=== PATIENT | male | born 2000 | race Caucasian/White ===

== ENCOUNTER 2023-03-12 14:34 | Emergency (ER) | payer OTHER, SELFPAY ==
--- NOTE | 2023-03-12 14:42 | ED.GENADULT ---
HPI - General Adult General Chief complaint: Nausea/Vomiting/Diarrhea Stated complaint: Abdominal Pain Source: patient, RN notes reviewed and old records reviewed Mode of arrival: ambulatory Limitations: no limitations History of Present Illness HPI narrative: 22-year-old male presents to [facility] with complaints of nausea, vomiting, diarrhea this started Wednesday night after eating burger Derek. Patient states doc got food poisoning but symptoms are not improving. Patient states has 4-5 loose stools A day, and to episodes of vomiting per day. Patient has not taken anything for symptoms. MD complaint: N/V/D Onset (ago): day(s) (5) Related Data Allergies Allergy/AdvReac Type Severity Reaction Status Date / Time No Known Allergies Allergy Unverified 05/03/18 08:26 Review of Systems Constitutional: Constitutional: Reports no additional constitutional complaints, Reports body ache(s), Denies chills, Reports fatigue, Denies fever(s), Denies headache(s) and Reports poor appetite Eyes: Eyes: Reports no additional eye complaints and Denies blurry vision ENT: Reports system reviewed and no additional complaints, except as documented, Denies vertigo, Denies dizziness, Denies ear discharge, Denies otalgia, Denies facial pain, Denies headache(s), Denies nasal congestion, Denies nasal discharge, Denies sinus pain, Denies sinus pressure and Denies sore throat Cardiovascular: Cardiovascular: Reports no additional cardiovascular complaints, Denies chest pain, Denies chest pain at rest, Denies rapid heart rate and Denies dyspnea Respiratory: Respiratory: Reports no additional respiratory complaints, Denies chest congestion, Denies cough, Denies pain on inspiration, Denies pain with cough and Denies dyspnea Gastrointestinal: Gastrointestinal: Reports abdominal pain, Reports diarrhea, Reports nausea and Reports vomiting Integumentary/Breasts: Skin/Breast: Denies rash Neurologic: Reports system reviewed and no additional complaints, except as documented, Denies vertigo, Denies dizziness and Denies headache(s) Endocrine: Endocrine: Denies fatigue PMFSH Comments At the time of my signature, I reviewed and agree with the nursing past medical, surgical, social, and family history. There is no relevant family history pertinent to the patient complaint. Exam Const: General: cooperative, healthy appearing, no acute distress and well nourished Nutritional Appearance: well nourished Orientation/consciousness: patient oriented x3 Limitations: no limitations HENMT: Head: normal to inspection and normocephalic Ears: external ears normal, TM's normal bilaterally, mastoids normal and Abnormal EAC present Face/Nose/Sinus: normal facial exam Face and sinus: normal facial exam Mouth: Yes Normal oral and palatal mucosa present, Yes oropharynx normal and Yes moist mucous membranes Throat: tonsils normal, uvula midline and no uvular edema Eyes: General: appearance normal, both eyes and all related structures Sclera: sclerae normal Pupils: Equal, round and reactive pupils present Resp: Effort & Inspection: normal respiratory effort, able to speak in complete sentences, no audible wheezes, no cough, no respiratory distress and no retractions Cardio: Rate: regular rate GI: Inspection: normal to inspection, no edema and non-distended GI Palp: No abdominal tenderness, Yes Soft to palpation, No Firmness to palpation present (GI), No Tenderness to palpation present (GI), No Guarding due to palpation present (GI), No Rigid due to palpation, No No hepatosplenomegaly present and No Hepatosplenomegaly present Auscultation: normal bowel sounds Skin: General skin exam: normal color and no rashes or lesions noted Neuro: General: patient oriented x3 Cranial nerves: Yes Equal, round and reactive pupils present Psych: Appearance: grossly normal Mental Status: mental status grossly normal Speech and movement: Normal speech and movement present Affect: normal affec
[2023-03-12 14:48] VITALS: BP 123/51; PULSE 89; RESP 16; TEMP 37.3; O2SAT 100
== END 2023-03-12 15:04 | disposition home or self-care (01) ==
PROVIDERS: Emergency Provider Registered Nurse; PCP Internal Medicine
DX: K52.9 Noninfective gastroenteritis and colitis, unspecified (principal)
CPT/HCPCS: 99203; G0463

== ENCOUNTER 2023-08-12 09:14 | Emergency (ER) | payer OTHER, SELFPAY ==
[2023-08-12 09:20] VITALS: BP 146/81; PULSE 87; RESP 20; TEMP 37.2; O2SAT 99
--- NOTE | 2023-08-12 09:47 | ED.WOUNDLAC ---
HPI - Wound/Laceration General Chief Complaint: Wound/Laceration Stated Complaint: lac on right right finger Time Seen by Provider: 08/12/23 09:35 Source: patient, RN notes reviewed and old records reviewed Mode of arrival: ambulatory Limitations: no limitations History of Present Illness HPI narrative: 22 year old male who [facility] with complaints of laceration to dorsal aspect of his right ring finger,side aspect at PIP joint region. Patient reports that he was cleaning out his car and cut it on piece of metal that was sticking out under car seat. Patient reports that this happened at 2030 last evening and he cleansed wound and applied triple antibiotic ointment and band-aide. He states that his tetanus is up to date.Patient is right hand dominant. Onset (ago): day(s) (last night at 2030) Location: other (right ring finger) Patient tetanus UTD: Yes Treatments prior to arrival: other (cleansed and triple antibiotic ointment) Related Data Allergies Allergy/AdvReac Type Severity Reaction Status Date / Time No Known Allergies Allergy Unverified 05/03/18 08:26 Review of Systems Review of Systems: CONSTITUTIONAL: Denies fever, chills, or sweats. CARDIOVASCULAR: Denies chest pain, palpitations, or edema. RESPIRATORY: Denies cough or dyspnea. SKIN: Reports laceration to the right dorsal mid aspect of his right ring finger to side aspect near PIP joint MUSCULOSKELETAL: Denies musculoskeletal pain NEUROLOGIC: Denies numbness, or weakness. All systems reviewed & are unremarkable except as noted in HPI and below PMFSH Past Medical History Medical History Asthma when young Open right clavicular fracture with internal fixation Social History Social History Smoking status: Current every day smoker Tobacco type: e-cigarettes/vaping Alcohol intake: never Substance use type: does not use Living arrangements: with family Gender identity (if verbalized by the patient): Male Comments At time of signature, agree with nursing past medical, surgical, social and family history. There is no relevant family history pertinent to the presenting complaint Exam Narrative: GENERAL: Well-appearing, well-nourished, and in no acute distress. HEAD: Normocephalic, atraumatic. NECK: Supple.no lymphadenopathy CHEST: Clear to auscultation. No respiratory distress.SAO2 99% on room air HEART: Regular rate and rhythm. No murmur heard. Normal peripheral pulses. EXTREMITIES: Normal range of motion. No edema. SKIN: Warm, dry, no rash. Reports 1.5 linear laceration to the right ring finger on side of finger at pip joint area, see procedure note, nail bed blanches briskly, denies any tingling or numbness to right ring finger or hand. NEURO: No focal deficits. Alert and oriented x3. Course Course Level of Care: Express Care Visit Vital Signs Vital signs: Vital Signs Temperature 37.2 C 08/12/23 09:20 Pulse Rate 87 08/12/23 09:20 Respiratory Rate 08/12/23 09:20 Blood Pressure 146/81 H 08/12/23 09:20 Pulse Oximetry 99 08/12/23 09:20 Oxygen Delivery Room Air 08/12/23 09:20 Temperature 37.2 C 08/12/23 09:20 Pulse Rate 87 08/12/23 09:20 Respiratory Rate 08/12/23 09:20 Blood Pressure 146/81 H 08/12/23 09:20 Pulse Oximetry 99 08/12/23 09:20 Oxygen Delivery Room Air 08/12/23 09:20 Procedures Laceration finger: Date: 08/12/23 Time: 09:55 Site: other (ring finger) Side (If applicable): right Size (cm): 1.5 Description: linear Depth: simple, single layer Local Anesthetic: none Pre-repair: wound explored, irrigated extensively and other (Cleansed with wound care solution) ====== Skin Level ====== Skin layer closed with: dermabond and steri strips ====== Subcutaneous Layer ======
== END 2023-08-12 10:15 | disposition home or self-care (01) ==
PROVIDERS: Emergency Provider Registered Nurse; PCP Internal Medicine
DX: S61.214A Laceration without foreign body of right ring finger without damage to nail, initial encounter (principal); W45.8XXA Other foreign body or object entering through skin, initial encounter; F17.290 Nicotine dependence, other tobacco product, uncomplicated
CPT/HCPCS: 12001; 99213; G0463

== ENCOUNTER 2024-11-23 15:51 | Emergency (ER) | payer OTHER, SELFPAY ==
--- OUTSIDE RECORDS SUMMARY | 2024-11-23 15:53 | XMS_ITS | Clinical Summary ---
Author Organization [facility] Address [address] [place] [address] Care Team Providers Care Inhalation Therapist Name Role Phone Michele Reyes MD Primary Care Provider [phone] Allergies No known active allergies Medications albuterol 108 (90 Base) MCG/ACT Aerosol Solution take 2 Puffs by inhalation every 4 hours as needed. 0 Active Active Problems Problem Noted Date Diagnosed Date Asthma 05/07/2016 Overview (05/21/2021): Controlled - as of 05/08 no nebs in years Resolved Problems Problem Noted Date Diagnosed Date Resolved Date Rotator cuff strain, right, initial encounter 09/15/19 23 03/01/2024 Traumatic brain injury 07/31/201805/21 Subdural hematoma 07/31/2018 05/21/2021 Closed fracture of right wrist 07/31/2018 05/21/2021 Open displaced fracture of s haft of right clavicle 07/30/2018 05/21/2021 Overview (05/21/2021): Added automatically from request for surgery [id number] Immunizations Immunization Administration Dates Next Due DTAP VACCINE 12/01/2007,02/11/2004,01/10/2004 DTAP/HIB/IPV COMBINED VACCINE 02/08/2003, 003 HIB Vaccine (PRP-T) 02/11/2004,01/10/2004 Hepatitis B Vaccine, Pediatric/adolescent 04/12/2003,2002,2002 Inactivated Polio Vaccine 12/01/2007,01/10/2004 Influenza Vaccine, MDCK,quad rivalent, pres free 02/03/2023,01/09/2022 Influenza Vaccine, Quadrivalent, PF 01/01/2020,1 ,12/27/2017 Influenza, Injectable, Mdck, Preservative Free 02/11/2024 Influenza, Injectable, Quadrivalent 12/28/2016,1 Influenza, Seasonal, Injecta ble, Undefined 01/09/2015,12/28/2013,12/28/2011 MMR Vaccine 12/01/2007,10/11/2003 Meningococcal MCV4O 09/18/2019 Meningococcal Vaccine 12/28/2013 Pneumococcal Vaccine - 13 Valent 004,01/10/2004,02/08/2003,12/12 TDAP Vaccine 10/04/2022,12/28/2013 Varicella Vaccine Live 12/01/2007,10/11/2003 Family History Medical History Relation Name Comments Asthma Brother No Known Problems Father Diabetes Maternal Grandmother No Known Problems Mother Relation Name Status Comments Brother Father Alive Maternal Grandmother Mother Alive Social History Tobacco Use Types Packs/Day Years Used Date Smoking Tobacco: Never Smokeless Tobacco: Never Tobacco Cessation:Counseling Given: Not Answered Alcohol Use Standard Drinks/Week Comments Not Currently 0 (1 standard drink = 0.6 oz pur e alcohol) PHQ-2 Answer Date Recorded Total Score - Questions 1-9 0 02/19 Sexually Active Control Partners Comments Not Currently Sex and Gender Information Value Date Recorded Sex Assigned at Not on file Legal Sex Male 10:17 AM [employer] Gender Identity Not on file Sexual Orientation Not on file Last Filed Vital Signs Vital Sign Reading Time Taken Comments Blood Pressure 124/52 03/01/2024 10:39 AM [employer] MACHINE OPERATOR Pulse 72 03/01/2024 10:39 AM [employer]IFIC[employer] MACHINE OPERATOR Temperature 36.3 C (97.4 F) 03/01/2024 10:39 AM [employer]IFICIAL [employer] MAKING MACHINE OPERATOR Respiratory Rate 18 03/01/2024 10:3 9 AM [employer]IFICIAL SN[employer] MAKING MACHINE OPERATOR Oxygen Saturation 99% 03/01/2024 10: 39 AM [employer]IFICIAL [employer] MAKING MACHINE OPERATOR Inhaled Oxygen Concentration - - Weight 76.2 kg (167 lb 14.4 oz) 024 10:39 AM [employer]IFICIAL [employer] MAKING MACHINE OPERATOR Height 182.9 cm (6') 03/01/2024 10:39 AM [employer]IFICIAL [employer] MAKING MACHINE OPERATOR Body Mass Index 22.77 03/01/2024 10:39 AM [employer]IFICIAL [employer] MAKING MACHINE OPERATOR Plan of Treatment Health Maintenance Due Date Last Done Comments Hepatitis C Virus (HCV) Screening 2002 Pneumococcal Immunization Combined (1 of 1 - PPSV23, PCV20, or PCV21) 2008 02/11/2004, 01/10/2004, 02/08/2003, Additional history exists Human Papillomavirus (HPV) Immunization (1 - Male 3-dose series) 2017 Meningococcal B Immunization (1 of 2 - Standard) 2018 Influenza Immunization (#1) 11/20/202401/21, 02/03/2023, 01/09/2022, Additional history exists SARS-COV-2 Immunization (1 - season) 2024 DTaP/Tdap/Td Immunization (7 - Td or Tdap) 10/04/2032 10/04/2022, 12/28/2013, 12/01/2007, Additional history exists Respiratory Syncytial Virus (RSV) Immunization (Adult) (1 - 1-dose 75+ series) 2077 Hepatitis B Immunization Completed 004, 2002, 2002 Measles Mumps Rubella (MMR) Immunization Discontinued 12/01/2007, 10/11/2003 Polio (IPV) Immunization Discontinued 008, 01/10/2004, 02/08/2003, Additional history exists Varicella Immunization Discontinued 12/01/2007, 2003 Meningococcal Immunization (ACWY) Completed 09/18/2019, 12/28/2013 Rotavirus Immunization Aged Out No lo nger eligible based on patient's age to complete this topic Insurance [facility] Care Teams Inhalation Therapist Relationship Specialty Start Date End Date Michele Reyes MD [address] [place] [address] PCP - General Internal Medicine 05/21/21
--- NOTE | 2024-11-23 16:04 | ED.SKABFB ---
HPI - Skin/Abscess/Foreign Bdy General Chief complaint: Skin/Abscess/Foreign Body Stated complaint: Rash Time Seen by Provider: 11/23/24 16:35 Source: patient, RN notes reviewed and old records reviewed Mode of arrival: ambulatory Limitations: no limitations History of Present Illness HPI narrative: 24-year-old male presents to the [facility] with a generalized rash. Started on the left upper arm yesterday. Did take Benadryl last night which has improved his symptoms. States that he was clearing weeds couple of days ago. Related Data Allergies Allergy/AdvReac Type Severity Reaction Status Date / Time No Known Allergies Allergy Unverified 05/03/18 08:26 Review of Systems Review of Systems: All systems reviewed & are unremarkable except as noted in HPI and below Constitutional: Constitutional: Reports no additional constitutional complaints ENT: Reports system reviewed and no additional complaints, except as documented Cardiovascular: Cardiovascular: Reports no additional cardiovascular complaints, Denies chest pain and Denies dyspnea Respiratory: Respiratory: Reports no additional respiratory complaints, Denies chest congestion, Denies cough and Denies dyspnea Musculoskeletal: Musculoskeletal: Reports no additional musculoskeletal complaints Integumentary/Breasts: Skin/Breast: Reports as per HPI [facility] Past Medical History Medical History Open right clavicular fracture with internal fixation Asthma when young Social History Social History Smoking status: Current every day smoker Tobacco type: e-cigarettes/vaping Alcohol intake: never Substance use type: does not use Living arrangements: with family Gender identity (if verbalized by the patient): Male Comments At the time of my signature, I reviewed and agree with the nursing past medical, surgical, social, and family history. There is no relevant family history pertinent to the patient complaint. Exam Const: General: cooperative, healthy appearing, comfortable, no acute distress, well developed, alert and well nourished Nutritional Appearance: well nourished Orientation/consciousness: patient oriented x3 Limitations: no limitations HENMT: Head: normal to inspection Ears: hearing grossly normal bilaterally and external ears normal Mouth: Yes Normal oral and palatal mucosa present, Yes lip normal, Yes tongue normal and Yes moist mucous membranes Eyes: General: appearance normal, both eyes and all related structures Alignment and Position: alignment normal Neck: Neck: normal visual inspection, full ROM, no lymphadenopathy and no meningeal signs Chest: Chest palpation & inspection: normal inspection of the chest Resp: Effort & Inspection: normal respiratory effort and able to speak in complete sentences Auscultation: clear to auscultation bilaterally, no crackles, no rales, no rhonchi and no wheezes Cardio: Rate: regular rate Skin: General skin exam: normal color and no rashes or lesions noted Other: Generalized red flat rash that patient describes being very itchy, consistent with contact dermatitis Neuro: General: patient oriented x3, gait normal, moves all extremities and no meningeal signs Cognition (Neuro): normal cognition Speech: normal speech Gait exam (Neuro): Normal gait present Extrem: General: normal to inspection, full ROM, capillary refill normal and normal gait Psych: Appearance: grossly normal and well kempt Mental Status: mental status grossly normal Speech and movement: Normal speech and movement present and Clear speech present Affect: normal affect Attitude: cooperative Course Course Level of Care: Express Care Visit Vital Signs Vital signs: Vital Signs Temperature 98.4 F 11/23/24 16:05 Pulse Rate 53 L 11/23/24 16:05 Respiratory Rate 16 11/23/24 16:05 Blood Pressure 140/68 11/23/24 16:05 Pulse Oximetry 100 11/23/24 16:05 Oxygen Delivery Room Air 11/23/24 16:05 Temperature 98.4 F 11/23/24 16:05 Pulse Rate 53 L 11/23/24 16:05 Respiratory Rate 16 11/23/24 16:05 Blood Pressure 140/68 11/23/24 16:05 Pulse Oximetry 100 11/23/24 16:05 Oxygen Delivery Room Air 11/23/24 16:05 Reviewed MDM - Skin/Abscess/Foreign Bdy MDM Narrative Medical decision making narrative: Patient sitting in exam room. Patient with generalized rash worse on the arms and legs exposed areas. Has taken Benadryl which has improved symptoms. Describes it as being very itchy. Exam consistent with contact dermatitis Patient appropriate for outpatient treatment with close follow-up Discharge instructions reviewed with patient, as well as provided in writing per nursing staff. The instructions also include specific and strict return/GO TO THE ER as well as f/u information. All questions have been answered, and the patient deny any further questions with discharge and discharge plan. Some parts of this dictation were generated by voice recognition software and may contain typographical and/or grammatical inaccuracies. Differential Diagnosis Differential diagnosis: Likely abscess of skin or subcutaneous tissue, urticaria, allergic reaction to drug, cellulitis, eczema, insect bites, impetigo and contact dermatitis Critical Care Time Critical Care Time Critical Care Time: No Discharge Plan Discharge Clinical Impression: Contact dermatitis Patient Disposition: Home Condition: Stable Instructions: Contact Dermatitis (ED) Additional Instructions: The most important part of your care is follow up with Primary care provider. Take Benadryl 25mg every 8 hours for itching Take Zyrtec 10mg every day for 14 days Take Pepcid 20mg daily for 14 days days Take the steroids starting tonight or you can take next dose in the morning. Avoid hot showers, Take cool showers. Hot showers will make rashes worse Apply cool compresses every 2-3 hours for 15 minutes Go to the ER for new or worsening symptoms such as shortness of breath. Patient Language: Portuguese Prescriptions: New prednisone 20 mg tablet See Rx Instructions .Route .COMPLEX Qty: 18 0RF Rx Instructions: Take 60 mg daily for 3 days, 40 mg daily for 3 days, 20 mg daily for 3 days Follow-up/Referrals: Amy,Michele Hanson MD [Primary Care Provider, Unknown] - 1 Week Clinical Impression: Contact dermatitis Stand Alone Forms: Work/School Release IP Time of Disposition: 16:40
[2024-11-23 16:05] VITALS: BP 140/68; PULSE 53; RESP 16; TEMP 36.9; O2SAT 100
== END 2024-11-23 16:47 | disposition home or self-care (01) ==
PROVIDERS: Emergency Provider Nurse Practitioner; PCP Internal Medicine
DX: L25.9 Unspecified contact dermatitis, unspecified cause (principal); F17.290 Nicotine dependence, other tobacco product, uncomplicated
CPT/HCPCS: 99213; G0463